=== PATIENT | female | born 1950 | race Caucasian/White ===

== ENCOUNTER 2018-02-23 11:00 | Outpatient (RCR) | payer MEDICARE, SELFPAY | END 2018-02-23 12:00 | disposition home or self-care (01) | LOC: PT 11:00 | PROVIDERS: Family Provider Family Medicine; PCP Family Medicine; Visit Provider Neurological Surgery | DX: S14.129A Central cord syndrome at unspecified level of cervical spinal cord, initial encounter (principal) | CPT/HCPCS: 97110 ==

== ENCOUNTER → 2019-06-15 09:12 | Outpatient (CLI) | payer MEDICARE, SELFPAY ==
--- NOTE | 2019-06-15 09:15 | MR_ITS ---
MR head/brain wo con HISTORY: [email or web address]: TIA ORDERING PHYSICIAN: Moo Talbot MD PATIENT AGE: 68 years Comparison: None TECHNIQUE: Standard multiplanar multiecho sequences are performed without contrast. FINDINGS: There are no areas of restricted diffusion. There is no mass, acute hemorrhage or extra-axial fluid collection. Ventricles, sulci and cortical areas are normal. There are punctate small round foci of CSF signal in the anterior commissure areas bilaterally. There is no abnormal surrounding FLAIR signal suggesting developmental small prominent perivascular spaces. There is a hazy punctate 3 mm focus of slight increased FLAIR signal in the anterior left side of the mel. The are no other areas of abnormal signal. Visualized optic pathway structures are unremarkable. Visualized vessels are patent and area of the foramen magnum is normal except there is a posterior small protrusion or spur at C4-5 level causing some cord deformity. There is small focus of mucosal thickening involving the posterior sphenoid sinus. IMPRESSION: No acute process. Nonspecific solitary punctate focus of slight increased signal along the left mel which could be from minimal chronic microvascular ischemic change. 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
--- NOTE | 2019-06-15 09:16 | MR_ITS ---
MR angio head wo con CLINICAL INDICATION: [email or web address]: TIA ORDERING PHYSICIAN: Moo Talbot MD PATIENT AGE: 68 years Comparison: None FINDINGS: The left vertebral artery is smaller compared to the right which is developmental finding. Vessels are otherwise patent without occlusion or stenosis and there is no evidence of aneurysm or vascular malformation. IMPRESSION: Normal study.
== END ==
PROVIDERS: PCP Nurse Practitioner Family; Visit Provider Internal Medicine
DX: G45.8 Other transient cerebral ischemic attacks and related syndromes (principal)
CPT/HCPCS: 70544; 70551